=== PATIENT | female | born 1935 | race Caucasian/White ===

== ENCOUNTER 2021-11-21 23:12 | Observation (INO) | payer MEDICARE, BC ==
[2021-11-21 23:24] LABS: #Basophils 0.1 10x3/uL (0.0-0.2); #Eosinphils 0.3 10x3/uL (0.0-0.5); #Monocytes 0.4 10x3/uL (0.0-1.1); #Neutrophils 2.3 10x3/uL (1.5-8.4); %Basophils 1.1 % (0.0-2.0); %Eosinophils 5.6 % (0.0-6.0); %Lymphocytes 33.3 % (18.0-47.0); %Monocytes 8.9 % (0.0-10.0); %Neutrophils 50.9 % (40.0-75.0); Mean Corpuscular HGB CONC 32.6 g/dL (32.0-36.0); Mean Corpuscular Hemoglobin 28.1 pg (27.0-33.0); Platelet Count 172 10x3/uL (150-450); RBC Distribution Width 13.7 % (11.5-14.5); Red Blood Cell (RBC) Count 3.92 10x6/uL (3.90-5.03); White Blood Cell (WBC) Count 4.5 10x3/uL (3.5-10.5)
[2021-11-21 23:38] LABS: ALT (SGPT) 23 U/L (8-55); AST (SGOT) 21 U/L (5-34); Albumin 4.1 g/dL (3.4-4.8); Alkaline Phosphatase 68 U/L (40-110); Anion Gap 13 mmol/L (10-20); BUN (Urea Nitrogen) 18 mg/dL (9.8-20.1); Bilirubin, Total 0.3 mg/dL (0.2-1.2); Calc. Creatinine Clearance 0 mL/min (70-130); Calcium 9.1 mg/dL (7.8-10.44); Carbon Dioxide 22 mmol/L (23-31); Chloride 105 mmol/L (98-107); Globulin 2.6 g/dL (2.4-3.5); Glucose 83 mg/dL (83-110); Potassium 3.9 mmol/L (3.5-5.1); Protein, Total 6.7 g/dL (5.8-8.1); Sodium 136 mmol/L (136-145)
[2021-11-21] MEDS ORDERED: Aspirin Chewable 81 MG TAB ONE (23:40)
[2021-11-22 01:54] VITALS: BMI 24.0
[2021-11-22 07:19] LABS: Anion Gap 10 mmol/L (10-20); BUN (Urea Nitrogen) 15 mg/dL (9.8-20.1); Calc. Creatinine Clearance 55 mL/min (70-130); Calcium 9.1 mg/dL (7.8-10.44); Carbon Dioxide 27 mmol/L (23-31); Cardiac Risk 2.4 (Less than 4.5); Chloride 107 mmol/L (98-107); Cholesterol 174 mg/dl (< 200 Desired); Glucose 93 mg/dL (83-110); HDL Cholesterol 72 mg/dL (>60 Neg Risk); LDL Cholesterol, Calculated 90 mg/dL; Magnesium 2.2 mg/dL (1.6-2.6); Potassium 4.3 mmol/L (3.5-5.1); Sodium 140 mmol/L (136-145); Triglycerides 60 mg/dL (Less than 150)
[2021-11-22] MEDS ORDERED: Clopidogrel Bisulfate 75 MG TAB PO SCH (09:00)
[2021-11-22] MEDS ORDERED: Escitalopram Oxalate 10 mg Tablet PO SCH (09:00)
[2021-11-22] MEDS ORDERED: Cholecalciferol 1,000 UNITS (25 MCG) TAB PO SCH (09:00)
[2021-11-22] MEDS ORDERED: Enoxaparin Sodium 40 MG/0.4 ML SYRINGE SC SCH (09:00)
[2021-11-22] MEDS ORDERED: Lisinopril 10 MG TAB PO SCH (09:00)
[2021-11-22] MEDS: Aspirin 81 mg Enteric Coated Tablet PO SCH ×2 (09:48→10:10)
[2021-11-22] MEDS: Ubidecarenone 50 MG CAP PO SCH ×2 (09:48→10:11)
[2021-11-22 16:36] VITALS: BP 156/65; TEMP 97.8
[2021-11-22] MEDS ORDERED: Atorvastatin Calcium 40 MG TAB PO SCH (21:00)
[2021-11-22] MEDS ORDERED: clonazePAM 0.5 MG TAB PO SCH (21:00)
[2021-11-22 22:04] LABS: SARS-CoV-2 PCR by NAA Not Detected (NotDetected)
== END 2021-11-22 18:42 | disposition home or self-care (01) ==
LOC: CSHERS 23:12 → INTOOBSV 11-22 01:49 → CSHTELE 11-22 01:49
PROVIDERS: ADMIT Family Medicine; ATTEND Internal Medicine
DX: G45.9 Transient cerebral ischemic attack, unspecified (principal); I48.0 Paroxysmal atrial fibrillation; I10 Essential (primary) hypertension; E78.5 Hyperlipidemia, unspecified; G47.33 Obstructive sleep apnea (adult) (pediatric); K21.9 Gastro-esophageal reflux disease without esophagitis; Z79.899 Other long term (current) drug therapy; Z79.02 Long term (current) use of antithrombotics/antiplatelets; Z87.891 Personal history of nicotine dependence; Z20.822 Contact with and (suspected) exposure to COVID-19
CPT/HCPCS: 70450; 70551; 71045; 80048; 80053; 80061; 83735; 84484; 85025; 93005; 93306; 93880; 96372; 99285; G0378; U0003; U0005; 36415; J1650

== ENCOUNTER 2022-03-07 08:46 | Outpatient (CLI) | payer MEDICARE, BC | END 2022-03-07 08:47 | disposition home or self-care (01) | LOC: CSHMAMMO 08:46 | PROVIDERS: ATTEND Internal Medicine | DX: Z12.31 Encounter for screening mammogram for malignant neoplasm of breast (principal) | CPT/HCPCS: 77063; 77067 ==

== ENCOUNTER 2022-09-09 21:13 | Emergency (ER) | payer MEDICARE, BC ==
[~2022-09-09 21:13] MED LIST: Iopamidol 370 76% 100 ML VIAL ONE
[2022-09-09 23:05] LABS: #Basophils 0.1 10x3/uL (0.0-0.2); #Eosinphils 0.2 10x3/uL (0.0-0.5); #Monocytes 0.5 10x3/uL (0.0-1.1); #Neutrophils 2.8 10x3/uL (1.5-8.4); %Basophils 1.3 % (0.0-2.0); %Eosinophils 4.5 % (0.0-6.0); %Lymphocytes 31.6 % (18.0-47.0); %Monocytes 8.7 % (0.0-10.0); %Neutrophils 53.7 % (40.0-75.0); Mean Corpuscular HGB CONC 32.7 g/dL (32.0-36.0); Mean Corpuscular Hemoglobin 28.3 pg (27.0-33.0); Mean Corpuscular Volume 86.6 fl (81.6-98.3); Mean Platelet Volume 11.6 fl (7.4-10.4); Platelet Count 196 10x3/uL (150-450); RBC Distribution Width 13.6 % (11.5-14.5); Red Blood Cell (RBC) Count 4.24 10x6/uL (3.90-5.03); White Blood Cell (WBC) Count 5.3 10x3/uL (3.5-10.5)
[2022-09-09] MEDS ORDERED: Morphine 2 MG/ML VIAL ONE (23:06)
[2022-09-09 23:09] LABS: Anion Gap 14 mmol/L (10-20); BUN (Urea Nitrogen) 18 mg/dL (9.8-20.1); Calc. Creatinine Clearance 0 mL/min (70-130); Carbon Dioxide 21 mmol/L (23-31); Chloride 103 mmol/L (98-107); Estimated GFR 76; Glucose 95 mg/dL (83-110); Magnesium 2.3 mg/dL (1.6-2.6); Potassium 3.9 mmol/L (3.5-5.1); Sodium 134 mmol/L (136-145)
[2022-09-09 23:14] LABS: INR-International Normal Ratio 1.1; PTT 36.7 sec (22.0-33.0)
[2022-09-10] MEDS ORDERED: Amlodipine 10 MG TAB ONE (00:20)
[2022-09-10] MEDS ORDERED: Amlodipine 5 MG TAB ONE (00:21)
[2022-09-10] MEDS ORDERED: Acetaminophen 325 MG TAB ONE (00:21)
[2022-09-10] MEDS ORDERED: Amlodipine 10 MG TAB PO SCH (00:30)
[2022-09-10] MEDS ORDERED: Metoclopramide HCl 10 MG/2 ML VIAL ONE (01:56)
== END 2022-09-10 02:57 | disposition home or self-care (01) ==
LOC: CSHERS 21:13
DX: I16.0 Hypertensive urgency (principal); I10 Essential (primary) hypertension; Z86.73 Personal history of transient ischemic attack (TIA), and cerebral infarction without residual deficits; Z79.899 Other long term (current) drug therapy; Z79.01 Long term (current) use of anticoagulants
CPT/HCPCS: 0042T; 70450; 80048; 82962; 83735; 85025; 85610; 85730; 93005; J2270; 36416; 96374; J2765

== ENCOUNTER 2024-06-23 07:42 | Emergency (ER) | payer MEDICARE, BC | END 2024-06-23 08:39 | disposition home or self-care (01) | LOC: CSHERS 07:42 | DX: M54.17 Radiculopathy, lumbosacral region (principal); I10 Essential (primary) hypertension; I48.91 Unspecified atrial fibrillation; Z79.01 Long term (current) use of anticoagulants | CPT/HCPCS: 72170; 93005; 93010; 99283 ==